=== PATIENT | female | born 1995 | race Caucasian/White ===

== ENCOUNTER 2024-12-10 08:36 | Outpatient (AMB) | payer OTHER, SELFPAY ==
--- OUTSIDE RECORDS SUMMARY | 2024-12-10 08:57 | XMS_ITS | Clinical Summary ---
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 Name Role Phone Josué Alfredo MD Primary Care Provider Social History Tobacco Use Types Packs/Day Years Used Date Smoking Tobacco: Never Assessed Comments Unknown Sex and Gender Information Value Date Recorded Sex Assigned at Not on file Legal Sex Female 6:24 PM EST Gender Identity Not on file Sexual Orientation Not on file Plan of Treatment Health Maintenance Due Date Last Done Comments Hepatitis B Vaccines (3 of 3 - 3-dose series) 07/02/1997 05/07/1997, 1996, 1996 Hepatitis A Vaccines (2 of 2 - 2-dose series) 04/04/2011 10/02/2010 Cervical Cancer Screening: Pap Smear 2017 DTaP,Tdap,and Td Vaccines (6 - Td or Tdap) 07/17/2021 07/17/2011, 12/25/2001, 09/17/1997, Additional history exists COVID-19 Vaccine ( season) 2024 Depression Screening 05/20/2024 HIV Screening 10/30/2024 Hepatitis C Screening 10/30/2024 Social Influencers of Health Screening 10/30/2024 Influenza Vaccine (#1) 2025 HIB Vaccines Aged Out 09/17/1997, 04/19, 02/09/1997, Additional history exists No longer eligible based on patient's age to complete this topic IPV Vaccines Completed 12/25/2001, 05/1998, 09/17/1997, Additional history exists MMR Vaccines Completed 12/25/2001, 04/07/1999 Varicella Vaccines Completed 08/22/2007, 10/18/1998 HPV Vaccines Completed 08/28/2011, 09/17, 08/22/2007 Meningococcal ACWY Vaccine Aged Out N o longer eligible based on patient's age to complete this topic Meningococcal B Vaccine Aged Out No l onger eligible based on patient's age to complete this topic Pneumococcal Vaccine: Pediatrics (0 to 5 Years) and At-Risk Patients (6 to 49 Years) Aged Out No longer eligible based on patient's age to complete this topic RSV Immunization Patients Under 20 months Aged Out No longer eligible based on patient's age to complete this topic Insurance [employer] Care Teams Solar Panel Installation Supervisor Relationship Specialty Start Date End Date Josué Alfredo MD [address] [place] [address] PCP - General Internal Medicine 11/18/24
--- NOTE | 2024-12-10 11:00 | MHC.OFFVISWM ---
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: Details: Start time: 11.03am, End time: 11.48am I spent 40 minutes speaking with the patient on the phone plus an additional 5 minutes reviewing and updating records for a total of 45 minutes HPI Comments Details: Previous weight loss efforts: self diets and exercise Wakes up: 8am, Sleeps: 10pm Breakfast: 9am premade Premier shake Lunch: 12-2pm (protein yogurt, boiled eggs, peppers) Dinner: 4-6pm (take-out, soups, chicken, rice) Snacks: 10am (occ chips, peanuts), 4pm (chips, peanuts), 8pm (popsicle, protein yogurt) Exercise: none Beverages: Coffee: none, Tea: none, Soda: (diet Coke, Sprite, Gingerale), Juice: (1/wk orange juice), ETOH: 1/month [facility] Medical History (Updated 12/10/24 @ 11:05 by Gildardo Villalta MD) Fibromyalgia Anxiety Depression Morbid obesity Surgical History (Updated 11/12/24 @ 14:44 by Zoë Patterson CMA) Hx of umbilical hernia repair Family History (Updated 11/12/24 @ 14:45 by Zoë Patterson CMA) Mother PCOS (polycystic ovarian syndrome) Hypothyroid Father No problems noted. Social History (Updated 11/12/24 @ 14:52 by Zoë Patterson CMA) Alcohol intake: current Alcohol intake frequency: holidays/special occasions only Patient Tobacco Use Status: Former Tobacco user Telehealth Telehealth Telehealth Platform: Telephone Location of provider rendering services: practice address Location of patient: address on file Patient Identification confirmed using: Name, : Yes Telehealth method: voice only Patient verbally consented to treatment: Yes Patient verbally consented to billing insurance company: Yes Patient informed of any privacy concerns related to visit: Yes Minutes spent on Phone/Video with Pt.: 45 Assessment & Plan Assessment & Plan (1) Morbid obesity: Code(s): E66.01 - Morbid (severe) obesity due to excess calories Category: Medical Plan: 1. Plan for lap sleeve gastrectomy. If diaphragmatic or ventral hernias are present at time of surgery, these will be repaired laparoscopically as well. I emphasized the importance of close follow-up, adherence to instructions and good communication. The surgery does not replace the need to change your lifestlyle which is the cause of the obesity problem. The surgery provides the motivation to try again to change your lifestyle, it reduces the appetite and make the transition to a better lifestyle easier and doubles the amount of weight you would lose compared to doing the lifestyle change without the surgery. You will need to be on a liquid diet with protein shakes for 2 weeks before surgery to maximize weight loss and boost your nutritional status to recover better from surgery and also for the first two weeks after surgery to let the stomach heal before we introduce other foods. After the first 2 weeks we will introduce protein bars and soft foods like scrambled eggs, cottage cheese and yogurt and after the 6th week will introduce meat, fish and cooked vegetables in small amounts. Over time you should be able to eat everything in small amounts. Side effects like nausea, vomiting, heartburn or abdominal pain are not common in the practice unless you are not following in the practice. This operation requires lifetime commitment to following in our practice and communication with me. You will much less weight and experience side effects if you don?t communicate or not following in the practice. Complications are rare and in our practice is about 1/10 of the national average. However, you can develop bleeding that may require transfusion (hasn?t happened for year in the practice), you may from complications (we did not have any deaths in the practice) and infections. Infections are usually a result of breakdown in communication or not understanding or following directions correctly. They are difficult to treat, they can happen during the first 6 weeks, they may require to be in the hospital for weeks or even months, not being able to eat by mouth and you may have drains and surgeries to try and correct the issue. Other risks and complications include possible conversion to an open procedure, leaks, small bowel obstruction, blood clots, cardiac, or pulmonary complications, as shelter complications such as ulcers, insufficient weight loss and vitamin deficiencies. 2.Nutritional counseling. Start with one premade PREMIER protein (buy at [employer], or [employer], or [employer]) shake (MIX 4oz of PREMIER and NOT the whole bottle WITH 4oz low fat unsweetended almond milk) at 9am-11am, 1 protein bar (16gr Fit Crunch protein bars, buy at [employer], [employer] or [employer]) at 12pm-2pm, another premade PREMIER protein (buy at [employer], or [employer], or [employer]) shake (MIX 4oz of PREMIER and NOT the whole bottle WITH 4oz low fat unsweetened almond milk) at 3pm-5pm, dinner at 6pm (10 forks of protein and 10 forks of salad/vegetables) and one more [employer] protein bar after dinner at 8pm-10pm. So you do 2 protein shakes, 2 protein bars and one meal per day. Meal to include lean meat (beef, fish, pork, turkey, chicken), or turkish yogurt, or egg whites, or beans with a salad with olive oil and fruits (berries, pears, apples, kiwi). Avoid salt, breads, potatoes, rice, pasta, desserts. 3. Each shake would be drunk slowly, like coffee in a period of 2 hours. 4. Cut each bar in 4 pieces and eat each piece in 30min to make each bar last 2 hours. 5. I emphasized the importance of measuring accurately the food portion and measure it when serving the food in plate 6. The meal portions include 10 full-size forks of meat and 10 full-size forks of salad. You always eat the meat portion but you can replace up to 5 forks for salad/vegetables with rice, potatoes or pasta, or a fruit if you like. The less you do it the better weight loss will be. 7. One full-size fork is what it can be scooped on the fork without falling aside and not what can be bit with the fork. Use regular forks like those you find in a typical restaurant. 8. Please buy the body composition scale we discussed and send me weight measurements as soon as possible and then once a week. Always include your diet and exercise plan. 9. Start walking outside daily, tracking calories with a goal of 300 calories per day, daily. Goal is to burn 2000 calories per week on exercise, which means either 300 calories daily, or 400 calories 5 days per week, or 500 calories 4 days per week, or 650 calories 3 days per week. 10. The best choice would be to purchase a stationary bike at home that can track calories. If you get one, please start stationary bike at a resistance level of 4.0 Increase level by 1.0 every 3 min to a max level of 10.0. Stay at this level for 3 min and then return to level 4.0 and repeat same steps until 300 calories are burned. Velocity target is 12mph and heart rate is 145 bpm. Goal is to burn 2000 calories per week on exercise 11. It is important of avoiding and for at least 18 months postoperatively and has been discussed at the infosession. 12. Goal is to lose at least 1.5-2lbs per week 13. Goal to lose 10% of your weight before surgery, which is about 29lbs. Ultimate weight goal: 240lbs before surgery 14. Please follow the diet plan exactly without any change. If you don't like something about the plan or you feel hungry you need to communicate with me so I can help you revise the plan. You should not change the plan yourself 15. To be scheduled for EGD to assess the stomach's anatomy. The possibility of biopsies was discussed. Patient needs to avoid use of NSAIDs and aspirin for 1 week prior to EGD. You must be on liquids only the day before your endoscopy. Risks of perforation and bleeding was discussed with the patient. This will be an outpatient procedure with IV sedation. 16. As of tomorrow, please send me a picture of your meal plate after you measure it, but before you consume it. 17. Please start the Phentermine at 10am daily. We discussed the potential side-effects of the Phentermine such as irritability, dry mouth, difficulty sleeping, dizziness, numbness in feet and high blood pressure. I asked her to get a blood pressure monitor and measure the blood pressure daily in the morning and evening. She needs to send the blood pressure readings daily and to call the office for blood pressure over 140/80 and she understands that. Orders: Orders Hemoglobin A1c Today E66.01 - Morbid (severe) obesity due to excess calories Complete Blood Count Auto Diff Today E66.01 - Morbid (severe) obesity due to excess calories Lipid Panel Today E66.01 - Morbid (severe) obesity due to excess calories Comprehensive Met. Panel Today E66.01 - Morbid (severe) obesity due to excess calories Vitamin B12 and Folate Today E66.01 - Morbid (severe) obesity due to excess calories Vitamin A Today E66.01 - Morbid (severe) obesity due to excess calories TSH reflex Free T4 Today E66.01 - Morbid (severe) obesity due to excess calories Ferritin Today E66.01 - Morbid (severe) obesity due to excess calories Vitamin D 25-OH Total Today E66.01 - Morbid (severe) obesity due to excess calories US abdomen comp w elastography Today E66.01 - Morbid (severe) obesity due to excess calories ECG 12 lead EKG Today E66.01 - Morbid (severe) obesity due to excess calories FL upper GI w air Today E66.01 - Morbid (severe) obesity due to excess calories Insulin Today E66.01 - Morbid (severe) obesity due to excess calories H Pylori Breath Test Today E66.01 - Morbid (severe) obesity due to excess calories IRON PROFILE Today E66.01 - Morbid (severe) obesity due to excess calories Zinc Today E66.01 - Morbid (severe) obesity due to excess calories C Reactive Protein Today E66.01 - Morbid (severe) obesity due to excess calories Vitamin B1 Today E66.01 - Morbid (severe) obesity due to excess calories XR chest 2V Today E66.01 - Morbid (severe) obesity due to excess calories Referrals Behavioral Health Referral E66.01 - Morbid (severe) obesity due to excess calories Nutrition/Dietitian Referral E66.01 - Morbid (severe) obesity due to excess calories Medications: New phentermine must administer 30 minutes before or 1-2 hours after breakfast 37.5 mg PO DAILY 30 caps 0RF E66.01 - Morbid (severe) obesity due to excess calories
[2024-12-10 11:14] VITALS: BMI 49.3
== END 2024-12-10 11:49 | disposition home or self-care (01) ==
LOC: HO.HBS 08:36
PROVIDERS: Visit Provider Surgery
DX: E66.01 Morbid (severe) obesity due to excess calories (principal)
CPT/HCPCS: 99204

== ENCOUNTER 2025-01-06 13:18 | Outpatient (AMB) | payer OTHER, SELFPAY ==
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
--- OUTSIDE RECORDS SUMMARY | 2025-01-06 14:11 | XMS_ITS | Clinical Summary ---
Author Organization [address] [place] [address] Address [address] [place] [address] Phone Care Team Providers Care Sports Leadership Instructor Name Role Phone Josué Alfredo MD Primary Care Provider [phone] Social History Tobacco Use Types Packs/Day Years [...] [employer] [place] [employer] Care Teams Sports Leadership Instructor Relationship Specialty Start Date End Date Josué Alfredo MD [address] [place] [address] PCP - General Internal Medicine 11/18/24
== END 2025-01-06 14:10 | disposition home or self-care (01) ==
LOC: HO.HBST 13:18
PROVIDERS: PCP Internal Medicine; Visit Provider Counselor Mental Health
DX: F43.10 Post-traumatic stress disorder, unspecified (principal); F33.9 Major depressive disorder, recurrent, unspecified
CPT/HCPCS: 90791

== ENCOUNTER 2025-01-19 15:12 | Outpatient (REF) | payer OTHER, SELFPAY ==
--- NOTE | ~2025-01-19 | XR_ITS ---
EXAMINATION: XR CHEST CLINICAL INFORMATION: E66.01 - Morbid (severe) obesity due to excess calories COMPARISON: None available. TECHNIQUE: 2 views of the chest were obtained. FINDINGS: No significant abnormality is noted involving the heart, lungs, mediastinum, bony thorax or soft tissues. XR/XR chest 2V IMPRESSION: Unremarkable chest examination. Electronically signed by: King Mc MD 01/19/2025 04:36 PM EDT
--- NOTE | 2025-01-19 15:18 | ECG_ITS ---
Test Reason : e66.01 Blood Pressure : */* mmHG Vent. Rate : 88 BPM Atrial Rate : 88 BPM P-R Int : 128 ms QRS Dur : 70 ms QT Int : 370 ms P-R-T Axes : 65 52 32 degrees QTcB Int : 447 ms Normal sinus rhythm Normal ECG No previous ECGs available Referred By: Gildardo Villalta Electronically Signed By: Connor Duggan
[2025-01-19 16:04] LABS: MANUAL DIFF FLAG NO
--- OUTSIDE RECORDS SUMMARY | 2025-01-19 16:22 | XMS_ITS | Clinical Summary ---
Author Organization [address] [place] [address] Address [address] [place] [address] Phone Care Team Providers Care Study Coordinator Name Role Phone Josué Alfredo MD Primary Care Provider [phone] Social History Tobacco Use Types Packs/Day Years [...] [employer] [place] [employer] Care Teams Study Coordinator Relationship Specialty Start Date End Date Josué Alfredo MD [address] [place] [address] PCP - General Internal Medicine 11/18/24
[2025-01-19 16:30] LABS: Hematocrit 34.7 % (37.0-47.0); Hemoglobin 11.4 g/dl (12.0-16.0); Imm Gran Abs Auto 0.03 X10*3/uL (0.00-0.03); Imm Gran Pct Auto 0.4 % (0.0-0.4); Lymphocytes Absolute Auto 2.4 X10*3/uL (1.2-4.9); Mean Corpuscular HGB Conc 32.9 g/dl (31.0-35.0); Mean Corpuscular Hemoglobin 27.1 pg (27.0-33.0); Mean Corpuscular Volume 82.4 fL (80.0-98.0); NRBC Abs Auto 0.000 X10*3/uL (0.0-0.012); NRBC Pct Auto 0.0 /100WBC (0.0-0.2); Platelet Count 272 X10*3/uL (160-400); Red Blood Count 4.21 X10*6/uL (4.20-5.50); White Blood Count 6.9 X10*3/uL (4.8-10.8)
[2025-01-19 16:36] LABS: Hemoglobin A1C 91.5990 umol/L; Total Hemoglobin (HGBA1C) 3029.7377 umol/L
[2025-01-19 17:58] LABS: Alanine Aminotransferase 18 U/L (0-31); Albumin Level 4.2 g/dL (3.5-5.0); Alkaline Phosphatase 41 U/L (39-117); Anion Gap 13 (12-20); Aspartate Amino Transferase 24 U/L (5-31); Blood Urea Nitrogen 14 mg/dL (9-16); Calcium 8.9 mg/dL (8.4-10.2); Carbon Dioxide 23 mmol/L (22-29); Chloride 108 mmol/L (96-108); Cholesterol 137 mg/dL (<200); Estimated Glomerular Filt Rate > 60; HDL Cholesterol 40 mg/dL (>40); Iron 45 mcg/dL (30-160); Percent Iron Saturation 14 % (15-50); Potassium 3.6 mmol/L (3.3-5.1); Sodium 140 mmol/L (135-145); Total Iron Binding Capacity 330 mcg/dL (228-428); Total Protein 7.7 g/dL (6.5-8.0); Triglycerides 61 mg/dL (<150); Unsaturated Iron Binding 285 ug/dL
[2025-01-19 18:18] LABS: Folate 7.1 ng/mL (> or = 4.0); Vitamin B12 354 pg/mL (200-900)
[2025-01-19 18:20] LABS: Ferritin 6 ng/mL (10-122)
== END 2025-01-19 15:13 | disposition home or self-care (01) ==
LOC: HO.XRAY 15:12
PROVIDERS: PCP Internal Medicine; Visit Provider Surgery
DX: E66.01 Morbid (severe) obesity due to excess calories (principal)
CPT/HCPCS: 36415; 71046; 80053; 80061; 82306; 82607; 82728; 82746; 83036; 83525; 83540; 84425; 84443; 84590; 84630; 85025; 86140; 93005

== ENCOUNTER → 2025-01-19 15:18 | Outpatient (BNV) | payer OTHER, SELFPAY | PROVIDERS: PCP Internal Medicine; Visit Provider Internal Medicine Cardiovascular Disease | DX: E66.01 Morbid (severe) obesity due to excess calories (principal) | CPT/HCPCS: 93010 ==

== ENCOUNTER → 2025-01-19 16:06 | Outpatient (BNV) | payer OTHER, SELFPAY | PROVIDERS: PCP Internal Medicine; Visit Provider Radiology Diagnostic Radiology | DX: E66.01 Morbid (severe) obesity due to excess calories (principal) | CPT/HCPCS: 71046 ==

== ENCOUNTER 2025-01-27 10:13 | Outpatient (AMB) | payer OTHER, SELFPAY ==
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
== END 2025-01-27 11:29 | disposition home or self-care (01) ==
LOC: HO.HBST 10:13
PROVIDERS: PCP Internal Medicine; Visit Provider Counselor Mental Health
DX: F43.10 Post-traumatic stress disorder, unspecified (principal); F33.9 Major depressive disorder, recurrent, unspecified
CPT/HCPCS: 90837

== ENCOUNTER 2025-02-02 11:57 | Day surgery (SDC) | payer OTHER, SELFPAY ==
--- OUTSIDE RECORDS SUMMARY | 2024-12-18 13:22 | XMS_ITS | Clinical Summary ---
Author Organization [address] [place] [address] Address [address] [place] [address] Phone Care Team Providers Care Chemical Research Engineer Name Role Phone Josué Alfredo MD Primary Care Provider [phone] Social History Tobacco Use Types Packs/Day Years [...] [employer] Care Teams Chemical Research Engineer Relationship Specialty Start Date End Date Josué Alfredo MD [address] [place] [address] PCP - General Internal Medicine 11/18/24
--- NOTE | 2025-01-29 14:27 | HO.ANESPROP2 ---
Documented by User: Karol Tsai NP 01/29/25 14:27 HPI - Anesthesia Eval Consult details Narrative: 29yo F for Upper Endoscopy BMI 49.4 PMFSH Active Problems Active Problems: All Active Problems Fibromyalgia (Acute) Anxiety (Acute) Depression (Acute) Morbid obesity (Acute) Past Medical History Medical History History of PCOS Vitamin B12 deficiency Vitamin D deficiency Anemia Fibromyalgia Anxiety Depression Morbid obesity Family History Family History Mother PCOS (polycystic ovarian syndrome) Hypothyroid Father No problems noted. Surgical History Surgical History Hx of esophagogastroduodenoscopy Hx of umbilical hernia repair Social History Social History Alcohol intake: current Alcohol intake frequency: holidays/special occasions only Patient Tobacco Use Status: Former Tobacco user Tobacco use type: Smokeless Tobacco Have you been hit, kicked, punched, or otherwise hurt by someone within the past year? If so, by whom?: No Are you DNR?: No Advance Directives: No Advance Directives Information Provided: Yes Meds Allergies Allergy/AdvReac Type Severity Reaction Status Date / Time shrimp Allergy Mild Hives Verified 12/10/24 11:02 Home Medications ?Medication ?Instructions ?Recorded ?Confirmed ?Last Taken ?Type bupropion HCl 150 mg 24 hr tablet, 150 mg PO DAILY 11/13/24 02/02/25 01/18/25 History extended release cetirizine 10 mg tablet 10 mg PO DAILY 11/13/24 02/02/25 01/18/25 History meloxicam 7.5 mg tablet 7.5 mg PO DAILY 11/13/24 02/02/25 01/18/25 History methocarbamol 750 mg tablet 750 mg PO BEDTIME PRN muscle spasm 11/13/24 02/02/25 01/18/25 History Assessment and Plan Assessment Anesthesia Assessment: Chart Reviewed Documented by User: Ana Rosa León MD 02/02/25 13:42 [facility] Past Medical History Medical History History of PCOS Vitamin B12 deficiency Vitamin D deficiency Anemia Fibromyalgia Anxiety Depression Morbid obesity Family History Family History Mother PCOS (polycystic ovarian syndrome) Hypothyroid Father No problems noted. Surgical History Surgical History Hx of esophagogastroduodenoscopy Hx of umbilical hernia repair History of Problems with Anesthesia: No Social History Social History Alcohol intake: current Alcohol intake frequency: holidays/special occasions only Patient Tobacco Use Status: Former Tobacco user Tobacco use type: Smokeless Tobacco Have you been hit, kicked, punched, or otherwise hurt by someone within the past year? If so, by whom?: No Are you DNR?: No Advance Directives: No Advance Directives Information Provided: Yes Meds Allergies Allergy/AdvReac Type Severity Reaction Status Date / Time shrimp Allergy Mild Hives Verified 12/10/24 11:02 Home Medications ?Medication ?Instructions ?Recorded ?Confirmed ?Last Taken ?Type bupropion HCl 150 mg 24 hr tablet, 150 mg PO DAILY 11/13/24 02/02/25 01/18/25 History extended release cetirizine 10 mg tablet 10 mg PO DAILY 11/13/24 02/02/25 01/18/25 History meloxicam 7.5 mg tablet 7.5 mg PO DAILY 11/13/24 02/02/25 01/18/25 History methocarbamol 750 mg tablet 750 mg PO BEDTIME PRN muscle spasm 11/13/24 02/02/25 01/18/25 History Exam Airway Mallampati Class: III TM Dist: >3cm Neck ROM: Full Loose/Missing/Broken Teeth: No Heart: RRR Lungs: CTA Assessment and Plan Assessment Anesthesia Assessment: Anesthesia Plan Discussed Final Anesthetic Review History of Problems with Anesthesia: No NPO: Yes ASA Class: III Final Preanesthetic Review: Meds/Allgs Chart Reviewed, Consent Obtained/Reviewed and Anes Risks/Benef Reviewed Patient Risk: Intermediate Procedure Risk: Intermediate Anesthetic Plan Anesthetic Plan: MAC: Disposition: Standard PACU
[2025-02-02 12:01] VITALS: BP 106/65; PULSE 89; RESP 16; TEMP 36.9; O2SAT 97; BMI 50.3
[2025-02-02 12:21] LABS: UPreg QC Valid YES
[2025-02-02] MEDS: Lactated Ringers 1,000 ML 100 ML IVCONT (12:23)
--- NOTE | 2025-02-02 14:19 | MHC.SHP ---
Pre-Procedural Eval Section A - 24 Hr Update-Section A only Date of Service: 02/02/25 The patient is an INPATIENT: No The patient has been examined within 24 hours of the surgical procedure. The History & Physical has been completed within 30 days and I have reviewed it.: Yes Section B - Complete if H&P > 30 days Chief Complaint: Morbid (severe) obesity due to excess calories Relevant Family History (Specify if Yes): No Relevant Social History: None Present Medications: None Medical History: No relevant PMH History of Previous Operations: No relevant previous surgery Allergies: Allergies Allergy/AdvReac Type Severity Reaction Status Date / Time shrimp Allergy Mild Hives Verified 12/10/24 11:02 Review of Systems Sugical H&P ROS: Negative: Constitution, Cardiovascular, Respiratory, Neurological, Psychiatric, Hem-Onc, Allergic/Immunologic, Gastrointestinal, Genitourinary, Musculoskeletal, Integumentary, Endocrine and Eyes/Ears/Nose/Throat Exam Surgical H&P Exam: Normal: HEENT, Normal: Heart, Normal: Lungs, Normal: Extremities, Normal: Abdomen, Normal: Skin and Normal: Neurological Plan Diagnosis/Plan: Unchanged (EGD to assess the stomach's anatomy. Risks of bleeding and perforation were discussed with the patient and she is in agreement with the plan.) I have reviewed the history and physical and performed a pertinent physical examination on my patient. No changes have occurred unless specified. Time Spent With Patient Time: Total time managing care of this patient today ____ minutes.
--- NOTE | 2025-02-02 14:20 | P.BOP_ITS ---
Brief Operative Note Date of Service: 02/02/25 Pre-op diagnosis: Morbid obesity Post-op diagnosis: same Procedure: PROCEDURE DATE: 02/02/2025 PREOPERATIVE DIAGNOSIS: Morbid obesity POSTOPERATIVE DIAGNOSIS: ?Same as above. Normal endoscopy PROCEDURE: Zrvjxjvp-doolmf-[id number] with biopsies Surgeon: Dread Villalta M.D.. Ph.D. [employer] Coxswain: None ? Anesthesia: IV sedation Estimated blood loss: ?Minimal FINDINGS AND PROCEDURE: ? OPERATIVE INDICATIONS: ?The patient is a 29 year old female known to me who is interested in bariatric surgery. Based on this information I recommended an upper endoscopy to evaluate the patient's symptoms. Risks and complications of the surgery were discussed with the patient in advance particularly the possibility of perforation or bleeding that may require surgical intervention. The patient understood the risks and was in agreement with the plan. ? PROCEDURE: After informed consent was obtained by the patient, the patient was ?transferred to the Operating Room and was placed in the supine position.? After successful induction of IV sedation, a mouth block was inserted and the patient was placed in the left lateral decubitus position. An upper endoscopy was performed next, the oropharynx and esophagus appeared within the normal limits. There was no hiatal hernia. The z-line was smooth. Two biopsies were obtained from the distal esophagus 2-3 cm proximal to the GE junction and two additional biopsies from the GE junction. The stomach was entered and it appeared to be of normal size. There was no gastritis. There was no stricture or ulcer. A biopsy was obtained from the gastric fundus and the antrum. No significant bleeding was noted from any of the biopsy sites. Retroflexion of the scope confirmed the presence of a normal GE junction. The scope was then advanced into the duodenum which appeared to be normal as well. At that point the duodenum ?and the stomach were decompressed and the scope was withdrawn from the patient's mouth. The patient extubated and was transferred in stable condition to the Recovery Room for further care. I was present and performed all steps of the procedure. There were no residents to assist with this case. Jose Villalta M.D., Ph.D. Surgeon: Gildardo Villalta MD Anesthesia: MAC Was an [employer] Coxswain used for this Procedure?: No Estimated blood loss (mL): 0 IV fluids (mL): 400 Urine output (mL): 0 (No Glaser to record output) Pathology: other (1) antrum x1, 2) fundus x1, 3) GE junction x2, 4) distal esophagus x2) Condition: stable Disposition: PACU
[2025-02-02 14:52] VITALS: BP 96/52; PULSE 71; RESP 16; TEMP 36.6; O2SAT 98
[2025-02-02 15:00] VITALS: BP 99/58; PULSE 67; RESP 16; O2SAT 95
[2025-02-02 15:15] VITALS: BP 105/78; PULSE 67; RESP 16; O2SAT 100
== END 2025-02-02 15:32 | disposition home or self-care (01) ==
PROVIDERS: Nurse Practitioner; PCP Internal Medicine; Visit Provider Surgery
PROC: 0DJ08ZZ Inspection of Upper Intestinal Tract, Via Natural or Artificial Opening Endoscopic (ICD-10-PCS; CPT 43235; principal; 2025-02-02 14:30)
DX: E66.01 Morbid (severe) obesity due to excess calories (principal); Z68.42 Body mass index [BMI] 45.0-49.9, adult; M79.7 Fibromyalgia; F32.A Depression, unspecified; F41.9 Anxiety disorder, unspecified; Z79.899 Other long term (current) drug therapy; Z91.013 Allergy to seafood; Z98.890 Other specified postprocedural states; Z87.891 Personal history of nicotine dependence
CPT/HCPCS: 43239; 81025; 88305; 88313; 88342; J2704

== ENCOUNTER → 2025-02-02 11:57 | Outpatient (BNV) | payer OTHER, SELFPAY | PROVIDERS: PCP Internal Medicine; Visit Provider Surgery | DX: E66.01 Morbid (severe) obesity due to excess calories (principal); Z68.42 Body mass index [BMI] 45.0-49.9, adult | CPT/HCPCS: 43239 ==

== ENCOUNTER 2025-02-10 10:43 | Outpatient (REF) | payer OTHER, SELFPAY ==
--- NOTE | ~2025-02-10 | US_ITS ---
EXAMINATION: US COMPLETE ABDOMEN WITH LIVER ELASTOGRAPHY CLINICAL INFORMATION: Morbid obesity due to excess calories. COMPARISON: None available. TECHNIQUE: Real-time imaging of the abdominal viscera. Noninvasive ultrasound liver fibrosis assessment is performed using Siemens point shear wave elastography (pSWE) with a C5-2 MHz transducer. Multiple elastography samples are obtained. FINDINGS: PANCREAS: The visualized pancreatic head and body are normal in appearance. The remainder of the pancreas is obscured from visualization by the overlying bowel gas. ABDOMINAL AORTA: No aortic aneurysm is seen. INFERIOR VENA CAVA: Visualized portions are normal. LIVER: The liver demonstrates normal size, contour and echogenicity. No focal lesion or intrahepatic biliary duct dilatation. The right lobe measures 15.8 cm in length. The left lobe measures 10.6 cm in length. Portal flow is towards the liver (hepatopetal). Shear wave liver elastography median stiffness is 0.85 m/s (reference: normal median stiffness is 1.3 m/s or less). IQR/median stiffness to assess sampling precision is 0.21 (reference: good quality data set is IQR/median stiffness of 0.3 or less). This represents a quality data set. GALLBLADDER: The gallbladder is physiologically distended without evidence of stones, sludge, polyps, wall thickening or pericholecystic fluid. COMMON BILE DUCT: Normal in caliber measuring 0.2 cm in diameter. RIGHT KIDNEY: No hydronephrosis. No renal calculi or focal parenchymal lesions. The kidney measures 12.3 cm in maximum dimension. LEFT KIDNEY: No hydronephrosis. No renal calculi or focal parenchymal lesions. The kidney measures 10.6 cm in maximum dimension. SPLEEN: Unremarkable. The spleen measures 12.1 cm in maximum dimension. FREE FLUID: None seen. US/US abdomen comp w elastography IMPRESSION: 1. Normal liver, gallbladder, and bile ducts. 2. Liver elastography: Measurements are consistent with a high probability of normal liver stiffness. 3. Remainder of the examination is normal. REFERENCE: Society of Radiologists in Ultrasound Liver Stiffness Thresholds (2019): LIVER STIFFNESS THRESHOLDS: *Liver Stiffness equal or less than 1.3 m/s: High probability of being normal. *Liver Stiffness less than 1.7 m/s: In the absence of other known clinical signs, rules out compensated advanced chronic liver disease. *Liver Stiffness 1.7-2.1 m/s: Suggestive of compensated advanced chronic liver disease but need further test for confirmation. *Liver Stiffness over 2.1 m/s: Rules in compensated advanced chronic liver disease. *Liver Stiffness over 2.4 m/s: Suggestive of clinically significant portal hypertension. QUALITY OF DATA SET: *IQR/Median value equal or less than 0.3 implies a quality data set. *IQR/Median value over 0.3 implies a poor quality data set. SIGNIFICANT CHANGE FROM PRIOR EXAM: Significant change if liver stiffness measurement is 10% or greater from prior exam. OTHER CONSIDERATIONS: The stage of liver fibrosis may be overestimated in the setting of acute hepatitis, liver inflammation, elevated liver function tests, hepatic vascular congestion, obstructive cholestasis, non-fasting state, and infiltrative diseases such as amyloidosis and lymphoma. In some patients with NAFLD, the liver stiffness thresholds for compensated advanced chronic liver disease may be lower. In causes other than viral hepatitis and NAFLD, liver stiffness thresholds are not well established. Electronically signed by: Merrick Garcia MD 02/10/2025 12:58 PM EDT
--- OUTSIDE RECORDS SUMMARY | 2025-02-10 13:27 | XMS_ITS | Clinical Summary ---
Author Organization [address] [place] [address] Address [address] [place] [address] Phone Care Team Providers Care Tire Inspector Name Role Phone Josué Alfredo MD Primary Care Provider [phone] Social History Tobacco Use Types Packs/Day Years [...] 07/17/2021 07/17/2011, 12/25/2001, 09/17/1997, Additional history exists Depression Screening 05/20/2024 HIV Screening 10/30/2024 Hepatitis C Screening 10/30/2024 Social Influencers of Health Screening 10/30/2024 COVID-19 Vaccine ( season) 2025 Influenza Vaccine (#1) 2025 HIB Vaccines Aged [...] [employer] [place] [employer] Care Teams Tire Inspector Relationship Specialty Start Date End Date Josué Alfredo MD [address] [place] [address] PCP - General Internal Medicine 11/18/24
== END 2025-02-10 10:44 | disposition home or self-care (01) ==
LOC: HO.US 10:43
PROVIDERS: PCP Internal Medicine; Visit Provider Surgery
DX: E66.01 Morbid (severe) obesity due to excess calories (principal)
CPT/HCPCS: 76700; 76981

== ENCOUNTER → 2025-02-10 10:46 | Outpatient (BNV) | payer OTHER, SELFPAY | PROVIDERS: PCP Internal Medicine; Visit Provider Radiology Diagnostic Radiology | DX: E66.01 Morbid (severe) obesity due to excess calories (principal) | CPT/HCPCS: 76700 ==

== ENCOUNTER 2025-03-16 13:39 | Outpatient (AMB) | payer OTHER, SELFPAY ==
--- NOTE | 2025-03-16 13:15 | A.OFFWM_ITS ---
Intake Intake Visit Reasons: VIDEO BH F/U Allergies shrimp Allergy (Mild, Verified 12/10/24 11:02) Hives [facility] Medical History History of PCOS Vitamin B12 deficiency Vitamin D deficiency Anemia Fibromyalgia Anxiety Depression Morbid obesity Surgical History Hx of esophagogastroduodenoscopy Hx of umbilical hernia repair Family History Mother PCOS (polycystic ovarian syndrome) Hypothyroid Father No problems noted. Social History Alcohol intake: current Alcohol intake frequency: holidays/special occasions only Patient Tobacco Use Status: Former Tobacco user Tobacco use type: Smokeless Tobacco Behavioral Health Assessment Weight Management Therapy Therapy Notes Details Subjective: The patient presents for her third session, seeking to complete the assessment for weight-loss surgery. She reports ongoing difficulty adhering to her meal plan, primarily due to family pressures. She acknowledges episodes of eating regular foods followed by the use of laxatives and castor oil to purge. The patient has missed two previous appointments (02/11 and 03/02) and has not been seen since 01/27/2025. She notes some recent improvement in family dynamics and reports a 5-lb weight loss over the past week, though this was achieved through restrictive eating rather than following the prescribed plan. She is now enrolled in school to complete her [employer]. Objective: The patient attended today?s session in person. Most recent weight: 266 lbs. The session focused on processing barriers to meal plan adherence, including family influences and other life stressors. CBT-based interventions were used to help the patient identify and challenge unhelpful thoughts related to food, body image, and family expectations. Psychoeducation was provided regarding the risks of purging behaviors and restrictive eating. Motivational interviewing techniques were used to explore readiness for change and to support engagement in healthier coping strategies. The patient was encouraged to identify alterna tive, non-harmful ways to manage stress and anxiety. Due to the complexity of her current challenges, the assessment for surgical clearance could not be completed, and the session prioritized stabilization and support. Assessment/Response: * Mental status: alert and oriented. Mood described as anxious and overwhelmed; affect congruent. Thought process logical, though preoccupied with weight and food-related concerns. No evidence of psychosis. Insight and judgment are fair. * Risk reported/identified: Denies current suicidal or homicidal ideation. Reports ongoing use of laxatives/castor oil to purge, and restrictive eating behaviors. No acute safety concerns identified, but ongoing risk due to disordered eating behaviors. Assessment & Plan Assessment & Plan (1) PTSD (post-traumatic stress disorder): Code(s): F43.10 - Post-traumatic stress disorder, unspecified (2) Major depressive disorder, recurrent episode: Code(s): F33.9 - Major depressive disorder, recurrent, unspecified Plan Patient is not currently cleared or stable to proceed with weight-loss surgery. She will require ongoing pre- and post-operative behavioral health support, with a focus on addressing anxiety, disordered eating, and developing healthier coping mechanisms. Continue regular follow-up to monitor progress, support engagement in treatment, and reassess readiness for surgery. * Next appointment: 04/02/2025- video Telehealth Telehealth Telehealth Platform: [employer] Location of provider rendering services: other (Home office. [place], [place]) Location of patient: address on file Patient Identification confirmed using: Name, : Yes Telehealth method: voice only Patient verbally consented to treatment: Yes Patient verbally consented to billing insurance company: Yes Patient informed of any privacy concerns related to visit: Yes Minutes spent on Phone/Video with Pt.: 45 [place] [address] Tele Psytx 45 mins Patient Type Established Diagnoses PTSD (post-traumatic stress disorder) F43.10 Major depressive disorder, recurrent episode F33.9 Time Spent (min) 45
--- OUTSIDE RECORDS SUMMARY | 2025-03-16 17:43 | XMS_ITS | Clinical Summary ---
Author Organization [address] [facility] Address [address] [place] [address] Phone Care Team Providers Care Guest Relations Associate Name Role Phone Josué Alfredo MD Primary Care Provider [phone] Social History Tobacco Use Types Packs/Day Years [...] ( season) 2025 Influenza Vaccine (#1) 2025 RSV Immunization Adult Patients (1 - 1-dose 75+ series) 10/07/2071 HIB Vaccines Aged Out 09/17/1997, 04/19, 02/09/1997, [...] [employer] [place] [employer] Care Teams Guest Relations Associate Relationship Specialty Start Date End Date Josué Alfredo MD [address] [place] [address] PCP - General Internal Medicine 11/18/24
== END 2025-03-16 14:34 | disposition home or self-care (01) ==
LOC: HO.HBST 13:39
PROVIDERS: PCP Internal Medicine; Visit Provider Counselor Mental Health
DX: F43.10 Post-traumatic stress disorder, unspecified (principal); F33.9 Major depressive disorder, recurrent, unspecified
CPT/HCPCS: 90834

== ENCOUNTER 2025-04-02 13:20 | Outpatient (AMB) | payer OTHER, SELFPAY ==
--- NOTE | 2025-04-02 13:15 | MHC.WMTHER ---
Intake Intake Visit Reasons: VIDEO BH F/U Allergies shrimp Allergy (Mild, Verified 12/10/24 11:02) Hives [facility] Medical History History of PCOS Vitamin B12 deficiency Vitamin D deficiency Anemia Fibromyalgia Anxiety Depression Morbid obesity Surgical History Hx of esophagogastroduodenoscopy Hx of umbilical hernia repair Family History Mother PCOS (polycystic ovarian syndrome) Hypothyroid Father No problems noted. Social History Alcohol intake: current Alcohol intake frequency: holidays/special occasions only Patient Tobacco Use Status: Former Tobacco user Tobacco use type: Smokeless Tobacco Behavioral Health Assessment Weight Management Therapy Therapy Notes Details Subjective: The patient reports ongoing inconsistency with adhering to both her meal and exercise plans. She acknowledges difficulty maintaining routines and identifies challenges with motivation and follow-through. Objective: The patient attended a pre-operative behavioral health follow-up visit via telehealth. The session focused on exploring current functioning and barriers to adherence. Using a solution-focused approach, the patient and provider collaboratively identified specific obstacles to commitment and generated alternative strategies. CBT-based interventions targeted cognitive distortions, particularly [id number] thinking and setting unrealistically high standards. These thoughts were reframed to promote a more flexible and compassionate mindset. The importance of prioritizing a consistent sleep schedule was discussed, with the goal of supporting earlier wake times and reducing skipped meals. The patient was encouraged to implement small, achievable changes rather than striving for perfection. Additionally, the patient was provided with a reorganized copy of her nutritional plan from the surgeon?s office, formatted for easy reference and printing at home, to support daily adherence. Assessment/Response: Mental status: Alert and oriented. Appearance appropriate for telehealth. Mood described as frustrated but hopeful; affect congruent. Thought process logical and goal-directed. No evidence of psychosis. Insight and judgment are intact. Risk reported/identified: Denies suicidal or homicidal ideation. No self-harm or acute safety concerns identified. Patient is engaged in treatment and demonstrates motivation to improve adherence. Assessment & Plan Assessment & Plan (1) PTSD (post-traumatic stress disorder): Code(s): F43.10 - Post-traumatic stress disorder, unspecified (2) Major depressive disorder, recurrent episode: Code(s): F33.9 - Major depressive disorder, recurrent, unspecified Plan Reviewed coping and safety plans. Provider will be out of the office for 3 weeks in April; next follow-up is scheduled for 05/24/2025 via telehealth. Patient encouraged to utilize CBT strategies, maintain a regular sleep schedule, and refer to the nutritional plan to support consistency until the next visit. Telehealth Telehealth Telehealth Platform: [employer] Location of provider rendering services: other (Home office. [place], [place]) Location of patient: address on file Patient Identification confirmed using: Name, : Yes Telehealth method: voice only Patient verbally consented to treatment: Yes Patient verbally consented to billing insurance company: Yes Patient informed of any privacy concerns related to visit: Yes Minutes spent on Phone/Video with Pt.: 45 [place] [address] Tele Psytx 45 mins Patient Type Established Diagnoses PTSD (post-traumatic stress disorder) F43.10 Major depressive disorder, recurrent episode F33.9 Time Spent (min) 45
--- OUTSIDE RECORDS SUMMARY | 2025-04-02 19:32 | XMS_ITS | Clinical Summary ---
Author Organization [address] [facility] Address [address] [place] [address] Phone Care Team Providers Care Reaming Press Operator Name Role Phone Josué Alfredo MD Primary Care Provider [phone] Social History Tobacco Use Types Packs/Day Years [...] [employer] [place] [employer] Care Teams Reaming Press Operator Relationship Specialty Start Date End Date Josué Alfredo MD [address] [place] [address] PCP - General Internal Medicine 11/18/24
== END 2025-04-02 14:05 | disposition home or self-care (01) ==
LOC: HO.HBST 13:20
PROVIDERS: PCP Internal Medicine; Visit Provider Counselor Mental Health
DX: F43.10 Post-traumatic stress disorder, unspecified (principal); F33.9 Major depressive disorder, recurrent, unspecified
CPT/HCPCS: 90834